=== PATIENT | female | born 1965 | race Caucasian/White ===

== ENCOUNTER → 2016-07-29 | Outpatient (REF) | payer BC ==
[~2016-07-29] MED LIST: IBUP60TA PO; VICO5TAB16 PO; vitamin D PO
[2016-07-29 12:04] LABS: BASO % 0.2 % (0.0-1.0); EOS # 0.1 K/mm3 (0.0-0.50); EOS % 1.4 % (0.0-3.0); LARGE UNSTAINED CELL # 0.1 K/mm3 (0.0-0.4); LARGE UNSTAINED CELL % 1.7 % (0.0-4.0); LYMPH # 1.7 K/mm3 (1.5-4.5); LYMPH % 29.7 % (24.0-44.0); MEAN CORPUSCULAR HEMOGLOBIN 30.5 pg (27.0-33.0); MEAN CORPUSCULAR HGB CONC 33.6 g/dl (32.0-36.5); MEAN CORPUSCULAR VOLUME 90.7 fl (80.0-96.0); MONO # 0.5 K/mm3 (0.0-0.8); MONO % 8.1 % (0.0-5.0); NEUTROPHILS # 3.3 K/mm3 (1.8-7.7); NEUTROPHILS % 58.9 % (36.0-66.0); PLATELET COUNT, AUTOMATED 203 k/mm3 (150-450); RED CELL DISTRIBUTION WIDTH 12.8 % (11.5-14.5); WHITE BLOOD COUNT 5.6 K/mm3 (4.0-10.0)
[2016-07-29 12:26] LABS: ALBUMIN 3.8 GM/DL (3.2-5.2); ALBUMIN/GLOBULIN RATIO 1.65 (1.00-1.93); ALKALINE PHOSPHATASE 47 U/L (45-117); ALT/SGPT 16 U/L (12-78); ANION GAP 9 MEQ/L (8-16); AST/SGOT 11 U/L (15-37); BILIRUBIN,TOTAL 0.4 MG/DL (0.2-1.0); BLOOD UREA NITROGEN 11 MG/DL (7-18); CALCIUM LEVEL 8.6 MG/DL (8.5-10.1); CARBON DIOXIDE LEVEL 26 MEQ/L (21-32); CHLORIDE LEVEL 109 MEQ/L (98-107); CHOLESTEROL LEVEL 193 MG/DL (<200); CREATININE FOR GFR 0.88 MG/DL (0.55-1.02); FREE T4 1.01 NG/DL (0.76-1.46); GLOMERULAR FILTRATION RATE > 60.0 (>58); GLUCOSE, FASTING 82 MG/DL (70-105); SODIUM LEVEL 144 MEQ/L (136-145); TOTAL PROTEIN 6.1 GM/DL (6.4-8.2); TRIGLYCERIDES LEVEL 69 MG/DL (<150)
== END ==
LOC: M LABDRAW1 11:30
PROVIDERS: ATTEND Family Medicine
DX: Z13.220 Encounter for screening for lipoid disorders (principal); Z13.29 Encounter for screening for other suspected endocrine disorder; Z13.0 Encounter for screening for diseases of the blood and blood-forming organs and certain disorders involving the immune mechanism

== ENCOUNTER → 2016-08-01 | Outpatient (CLI) | payer BC ==
--- NOTE | 2016-08-01 15:24 | REP ---
RIGHT BREAST ULTRASOUND: 08/01/2016 CLINICAL HISTORY: Palpable finding upper outer quadrant right breast towards the axillary tail for about 4 days. COMPARISON: Diagnostic bilateral digital mammogram today, bilateral screening mammogram 03/04/2013, right breast ultrasound and diagnostic bilateral mammogram 05/11/2009. FINDINGS: Scanning in the upper outer quadrant from the 9-o'clock position to 12-o'clock position was performed. The palpable area is in the 10-o'clock to 11-o'clock region. There is underlying heterogeneous dense echogenic breast parenchyma corresponding to the dense fibroglandular tissue in the parenchyma on mammogram. At the 10-o'clock position is a cyst 6.8 x 4 x 5.3 mm. There are two smaller cysts or a single bilobed nodule also present nearby and measuring 5.9 x 5 x 3.67 mm. This is 6.7 cm from the nipple. In addition, there is a cyst at the noon position measuring 5.9 x 5.7 mm. The hypoechoic nodule with good through transmission is 5.9 x 3.6 mm. It has some internal echoes but no color flow and is at the 10-o'clock position. This is near the palpable finding. IMPRESSION: 1. Small cysts and a hypoechoic complex cyst or solid nodule at the 10-o'clock position near the palpable region of right breast of 5.9 x 3.6 mm. Please see mammogram report this date for final assessment and recommendation. Signed by Anival Walker MD 08/01/2016 05:42 P
--- NOTE | 2016-08-01 15:38 | REP ---
BILATERAL DIAGNOSTIC DIGITAL MAMMOGRAM: 08/01/2016. Comparison: Right breast ultrasound 08/01/2016, digital screening mammogram 03/04/2013, right breast ultrasound and bilateral mammogram 05/11/2009. Clinical history: Palpable lump upper outer quadrant right breast at 11 o'clock. She has been on estrogen therapy for 2 years running. Findings: The breast parenchyma are extremely dense throughout in a pattern and distribution symmetric and unchanged from multiple prior studies. This limits the sensitivity of mammography. There are scattered benign punctate calcifications bilaterally. [place] marker placed about the 10-o'clock to 11-o'clock position upper outer quadrant right breast at the axillary tail near the palpable finding. Standard two-view mammography with exaggerated CC, MLO and ML spot magnified views for a total of eight images in this study. There is no dominant mass, architectural distortion, skin thickening, suspicious cluster of clustered microcalcification or other secondary signs of malignancy. 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 A fat replaced axillary node is seen on the right side. On the spot magnification views, there was no focal lesion, dominant mass, architectural distortion at the upper outer quadrant of the left breast near the palpable finding. Right breast ultrasound: Scanning 9-o'clock to 12-o'clock position upper outer quadrant in the palpable area which is 10-o'clock to 11-o'clock shows heterogeneously dense fibrocystic glandular tissue. Multiple small cysts are noted. At 10-o'clock, there is a 6.8 x 5.3 x 4 mm cyst and also a hypoechoic nodule nearby 5.9 x 5 x 3.6 mm. It has some internal echoes, but no color flow. It shows some enhanced through transmission and is about 6.7 cm from the nipple. In addition, there is a small cyst at the noon position 5.9 x 5.7 x 5 x 1 mm. Impression: 1. BIRADS ACR category 4 suspicious, biopsy usually required. Although there are some simple cysts in the upper outer quadrant at the site of the palpable finding, there is also a nodule which may be a complex cyst or solid nodule. It has through transmission and some enhanced echoes posteriorly suggesting that it could be fibroadenoma, which often has this appearance. However, ultrasound is not a tissue specific diagnostic modality. Ultrasound-guided biopsy of this complex cyst or hypoechoic solid nodule would be recommended. Other findings in this region are all simple cysts. BI-RADS/ACR category 4 mammogram. Suspicious abnormality - biopsy should be considered. Usually requires biopsy. This mammogram was interpreted with the aid of an FDA-approved computer-aided detection system. A. Negative x-ray reports should not delay biopsy if a dominant or clinically suspicious mass is present. B. Four to eight percent of cancers are not identified by x-ray. C. Adenosis and dense breasts may obscure an underlying neoplasm The patient states she/he had a clinical breast exam in July 2016. The patient letter being requested is [id number]. (Dense). Signed by Anival Walker MD 08/01/2016 05:43 P
== END ==
LOC: M RAD 13:14
PROVIDERS: ATTEND Family Medicine
DX: Z12.31 Encounter for screening mammogram for malignant neoplasm of breast (principal); N63 Unspecified lump in breast
CPT/HCPCS: 76642; G0204

== ENCOUNTER → 2017-09-29 | Outpatient (REF) | payer BC ==
[2017-09-29 11:43] LABS: BASO % 0.3 % (0.0-1.0); HEMATOCRIT 40.3 % (36.0-47.0); HEMOGLOBIN 13.4 g/dl (12.0-15.5); IMMATURE GRANULOCYTE % 0.4 % (0-3.0); LYMPH # 2.4 10^3/uL (1.5-4.5); LYMPH % 32.5 % (24.0-44.0); MEAN CORPUSCULAR HGB CONC 33.3 g/dl (32.0-36.5); MEAN CORPUSCULAR VOLUME 93.3 fl (80.0-96.0); MONO # 0.7 10^3/uL (0.0-0.8); NEUTROPHILS # 4.1 10^3/uL (1.8-7.7); NEUTROPHILS % 56.8 % (36.0-66.0); PLATELET COUNT, AUTOMATED 230 10^3/uL (150-450); RED BLOOD COUNT 4.32 10^6/uL (4.00-5.40); RED CELL DISTRIBUTION WIDTH 12.8 % (11.5-14.5); WHITE BLOOD COUNT 7.2 10^3/uL (4.0-10.0)
[2017-09-29 11:44] LABS: EOS # 0.1 10^3/uL (0.0-0.50)
[2017-09-29 12:31] LABS: ALBUMIN 4.1 GM/DL (3.2-5.2); ALBUMIN/GLOBULIN RATIO 1.41 (1.00-1.93); ALKALINE PHOSPHATASE 46 U/L (45-117); ALT/SGPT 21 U/L (12-78); ANION GAP 7 MEQ/L (8-16); AST/SGOT 13 U/L (7-37); BILIRUBIN,TOTAL 0.4 MG/DL (0.2-1.0); BLOOD UREA NITROGEN 12 MG/DL (7-18); CALCIUM LEVEL 8.6 MG/DL (8.5-10.1); CARBON DIOXIDE LEVEL 28 MEQ/L (21-32); CHLORIDE LEVEL 107 MEQ/L (98-107); CHOLESTEROL LEVEL 208 MG/DL (<200); CHOLESTEROL RISK RATIO 3.058 (<5); CREATININE FOR GFR 0.88 MG/DL (0.55-1.30); GLOMERULAR FILTRATION RATE > 60.0 (>51); GLUCOSE, FASTING 87 MG/DL (70-100); HDL CHOLESTEROL 68 MG/DL (>40); LDL CHOLESTEROL 123.6 MG/DL (<100); NON-HDL-C 140 MG/DL; POTASSIUM SERUM 4.1 MEQ/L (3.5-5.1); SODIUM LEVEL 142 MEQ/L (136-145); TRIGLYCERIDES LEVEL 82 MG/DL (<150)
== END ==
LOC: M LABDRAW1 08:40
DX: Z13.220 Encounter for screening for lipoid disorders (principal); Z13.29 Encounter for screening for other suspected endocrine disorder; Z13.0 Encounter for screening for diseases of the blood and blood-forming organs and certain disorders involving the immune mechanism
CPT/HCPCS: 84443

== ENCOUNTER → 2020-01-22 | Outpatient (REF) | payer BC ==
[~2020-01-22] MED LIST changes: +IBUP600T42 PO; -IBUP60TA PO; -VICO5TAB16 PO; +VICO5TAB17 PO
== END ==
LOC: M LAB REF 19:19
PROVIDERS: ATTEND Dermatology
DX: L57.0 Actinic keratosis (principal)

== ENCOUNTER → 2023-06-15 | Outpatient (CLI) | payer OTHER | LOC: M SLEEP HO 14:32 | PROVIDERS: ATTEND Family Medicine | DX: R06.83 Snoring (principal); G47.10 Hypersomnia, unspecified ==